=== PATIENT | male | born 1985 | race Caucasian/White ===

== ENCOUNTER → 2020-02-25 15:10 | Outpatient (BNVA) | payer OTHER, SELFPAY | PROVIDERS: Visit Provider Physician Assistant Medical | DX: S39.012A Strain of muscle, fascia and tendon of lower back, initial encounter (principal); X58.XXXA Exposure to other specified factors, initial encounter; M54.16 Radiculopathy, lumbar region | CPT/HCPCS: 99213 ==

== ENCOUNTER → 2020-03-01 15:12 | Outpatient (BNVA) | payer OTHER, SELFPAY | PROVIDERS: Visit Provider Physician Assistant Medical | DX: Z76.89 Persons encountering health services in other specified circumstances (principal) ==

== ENCOUNTER → 2020-03-08 09:51 | Outpatient (BNVA) | payer OTHER, SELFPAY | PROVIDERS: Visit Provider Physician Assistant Medical | DX: S39.012D Strain of muscle, fascia and tendon of lower back, subsequent encounter (principal); X58.XXXD Exposure to other specified factors, subsequent encounter; M54.16 Radiculopathy, lumbar region | CPT/HCPCS: 99213 ==

== ENCOUNTER → 2020-03-14 08:55 | Outpatient (BNVA) | payer OTHER, SELFPAY | PROVIDERS: Visit Provider Physician Assistant Medical | DX: M51.16 Intervertebral disc disorders with radiculopathy, lumbar region (principal) | CPT/HCPCS: 99213 ==

== ENCOUNTER → 2020-03-21 08:53 | Outpatient (BNVA) | payer OTHER, SELFPAY | PROVIDERS: PCP Internal Medicine; Visit Provider Physician Assistant Medical | DX: S39.012D Strain of muscle, fascia and tendon of lower back, subsequent encounter (principal); X58.XXXD Exposure to other specified factors, subsequent encounter; M54.10 Radiculopathy, site unspecified | CPT/HCPCS: 99213 ==

== ENCOUNTER 2020-03-21 15:05 | Outpatient (REF) | payer OTHER, SELFPAY ==
--- NOTE | 2020-03-21 | XR_ITS ---
EXAMINATION: PRE-MRI ORBIT CLINICAL INFORMATION: Pre-MRI orbit COMPARISON: None TECHNIQUE: 3 views of the orbits FINDINGS: No radiopaque foreign body is seen about the orbits. Bony structures are unremarkable. XR/XR pre mri screening IMPRESSION: No radiopaque foreign body.
--- NOTE | 2020-03-21 | XR_ITS ---
EXAMINATION: XR TIBIA AND FIBULA, LEFT CLINICAL INFORMATION: Pre-MRI screening for foreign body COMPARISON: None TECHNIQUE: AP and lateral views of the left tibia and fibula were obtained. FINDINGS: There is no radiopaque foreign body seen. Visualized tibia and fibula appears unremarkable. The soft tissues are normal. XR/XR tibia fibula LT 2V IMPRESSION: No radiopaque foreign body seen in left tibia and fibula.
--- NOTE | 2020-03-21 | MR_ITS ---
EXAMINATION: MR LUMBAR SPINE WITHOUT CONTRAST CLINICAL INFORMATION: Numbness, burning, pain in the right gluteal region. Right gluteal numbness and right leg pain. Lower back injury. COMPARISON: Report from an outside lumbar spine CT dated 02/21/2020. TECHNIQUE: MRI of the lumbar spine was obtained using routine sequences without contrast. FINDINGS: VERTEBRAL BODIES AND PARASPINAL STRUCTURES: Normal vertebral body alignment. The lumbar lordosis is maintained. No acute fracture or subluxation. No loss of vertebral body height. Mild loss of intervertebral disc height with disc desiccation at L5-S1. No abnormal marrow signal. 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 Otherwise, the visualized paraspinal soft tissues are unremarkable. CONUS MEDULLARIS AND CAUDA EQUINA: Normal, terminating at the level of the L1-L2 intervertebral disc. SPINAL LEVELS: T12-L1: No significant disc bulge. No central canal or neural foraminal stenosis. L1-L2: No significant disc bulge. No central canal or neural foraminal stenosis. L2-L3: No significant disc bulge. No central canal or neural foraminal stenosis. Bilateral facet arthropathy. L3-L4: No significant disc bulge. No central canal or neural foraminal stenosis. Bilateral facet arthropathy. L4-L5: Mild broad-based disc bulge with a shallow central disc protrusion. Bilateral facet arthropathy with thickening of the ligamentum flavum causing mild central canal as well as mild bilateral neural foraminal stenosis. L5-S1: Broad-based disc bulge with a posterior central disc protrusion which contacts the bilateral traversing S1 nerve roots within the lateral recesses. Prominent posterior annular fissure. Bilateral facet arthropathy with moderate bilateral neural foraminal stenosis. MR/MR lumbar spine wo con IMPRESSION: 1. L5-S1 broad-based disc bulge with a posterior central disc protrusion which contacts the bilateral traversing S1 nerve roots within the lateral recesses. Prominent posterior annular fissuring. Bilateral facet arthropathy with moderate bilateral neural foraminal stenosis. 2. L4-L5 broad-based disc bulge with a shallow central disc protrusion. Bilateral facet arthropathy with thickening of the ligamentum flavum causing mild central canal as well as mild bilateral neural foraminal stenosis. 3. Bilateral facet arthropathy at L2-L3 and L3-L4.
== END 2020-03-21 15:06 | disposition home or self-care (01) ==
LOC: HO.MRI 15:05
PROVIDERS: PCP Internal Medicine; Visit Provider Internal Medicine
DX: M79.604 Pain in right leg (principal); R20.0 Anesthesia of skin; Z01.818 Encounter for other preprocedural examination
CPT/HCPCS: 72148; 73590; 99213